=== PATIENT | female | born 1995 | race Caucasian/White ===

== ENCOUNTER 2017-04-03 23:51 | Emergency (ER) | payer MEDICAID ==
[~2017-04-03] VITALS: Ht 157.5 cm; Wt 73.8 kg
[~2017-04-03 23:51] MED LIST: DICL75TA5 PO; IBUP200C62 PO; NO ROUTINE MEDS; TRAM50TA4 PO
[2017-04-04 00:02] VITALS: Ht 157.5 cm; Wt 73.8 kg
[2017-04-04] MEDS: KETOROLAC 60mg/2ml INJECTION IM ONE (02:01)
--- NOTE | 2017-04-04 02:04 | NUR ---
XRAY PT TAKEN TO XRAY PER W/C
--- NOTE | 2017-04-04 02:16 | NUR ---
ROOM PT RETURNED TO ROOM 3 PER W/C FROM XRAY
--- NOTE | 2017-04-04 02:19 | NUR ---
PAIN PT REPORTS SHE IS NOT HURTING RIGHT NOW
[2017-04-04 02:26] VITALS: TEMP 97.8
--- NOTE | 2017-04-04 02:29 | ERPDOC ---
Departure Disposition Decision Date: April 04, 2017 Disposition Decision Time: : Disposition: 01 DISCHARGED HOME, SELF-CARE Impression Impression Impression: Primary Impression: Cervical strain Severity: Moderate Condition: Improved Seen By: Physician only Patient Instructions: Cervical Strain (ED) Problems/Meds/Labs Reviewed?: Yes Medications reviewed and manag: Yes Additional Instructions: Heat or cold to neck as tolerated. Robaxin 750 mg tablet 4 times daily for muscle spasm as needed. Your being sent with a QVPN ER pack. One tablet every 6 hours as needed for pain. Follow-up with your primary care provider. Follow up care ordered?: Yes Mental Status: Alert, Oriented Scripts Methocarbamol (Robaxin-750) 750 Mg Tablet 750 MG PO QID for PAIN, #30 TAB Take 1 tablet, by mouth, 4 times a day. Prov: KATY GATES MD 04/04/17 HPI - Headache General Chief Complaint: Headache Stated Complaint: HEAD PAIN Time Seen by Provider: 00:04 HPI - Headache Initial Comments 22-year-old female with neck ache and headache. She has been sleeping on a couch last couple nights, sharing it with her boyfriend. They're in the process of moving. She has had a kinked neck after sleeping on the couch. She then went out dancing with her 5-year-old daughter sanford and had increased neck pain after that. Pain is mid line neck up into the back of her head. No other pain or injuries no other complaints. No neuro symptoms Allergies: Coded Allergies: No Known Allergies (Unverified , 04/04/17) Past History Past Medical History Pt denies signifigant PMH Surgical History Denies Surgeries Vaccines Hx Influenza Vaccination: Yes (2012) Hx Pneumococcal Vaccination: No Social History Smoking Status: Current some day smoker # of Packs/Tins per Day: 0.5 Record Review Pertinent history updated: Yes Review of Systems Musculoskeletal General: see HPI Neurological General: see HPI All other Systems All Other Systems: Reviewed and Negative Physical Exam General General Nourishment: well nourished, well developed, appears stated age, no acute distress Vitals and Pain First Documented Vital Signs Date Time Temp Pulse Resp B/P Pulse Ox O2 Delivery O2 Flow Rate FiO2 04/04/17 00:02 97.8 97 20 123/67 99 Room Air Weight: Kilograms: 73.800 Height (feet): 5 Height (inches): 2.00 Triage Pain Scale: Normal Exams: Head: Normocephalic w/o trauma Chest/Resp: Clear all vicente, with good airflow, and symmetry bilaterally CV: Regular rate and rhythm, without murmur or gallop, Pulses 2+ all extremities, capillary refill, <2 seconds all ext., no pedal edema noted Neurologic: Patient is alert, and oriented, cranial nerves, motor/sensory/ cerebellar, exams w/o gross deficits, to observation Psychiatric: Patient exhibits, appropriate attention, emotion and affect Musculoskeletal (brief) Comments Tender mid C-spine to palpation. Paraspinal muscles also tender. Patient has pain with flexion of the neck. Rotation of neck is not painful. Neurologic (brief) Neurological Brief: FOUND: CN w/o gross def to obs, motor-no gross deficits, sensory-no gross deficits Differential Diagnoses Considering: Other (cervical fracture, cervical strain, migraine headache) Progress Results/Orders Orders Procedure Category Date Status Time Ketorolac (Toradol) PHA 04/04/17 Complete 02:00 Cervical Spine 3 RAD 04/04/17 Taken Views Or Less 01:54 Medications Current ED Medications Ketorolac Tromethamine (Toradol) 60 mg O ONCE IM Last administered on t 02:01; Start 04/04/17 at 02:00; Stop 04/04/17 at 02:01; Status DC Progress Progress X-rays cervical spine obtained and negative for any acute changes. It was sent for over read in a.m. Patient was given Toradol 60 mg IM which did help with pain. She'll be discharged with [facility] ER pack and prescription for Robaxin to be used when necessary for muscle spasm. If pain worsens she needs to call or return. KATY GATES MD April 04, 2017 02:29
[2017-04-04] MEDS ORDERED: METH-310 PO (02:32)
[2017-04-04 02:48] VITALS: BP 119/63; PULSE 89; RESP 16; O2SAT 99
--- NOTE | 2017-04-04 02:49 | NUR ---
INSTRUCTIONS DISMISSAL AND MEDICATION INSTRUCTIONS GIVEN TO PT RX GIVEN FOR ROBAXIN WITH INSTRUCTIONS DISP [facility] PREPACK WITH INSTRUCTIONS PT VERBALIZED UNDERSTANDING OF ALL
[2017-04-04] MEDS: HYDROCODONE/APAP 5/325 (PrePack) SENT HOME ONE (02:50)
--- NOTE | 2017-04-04 02:50 | NUR ---
DISMISS PT DISMISSED AMBULATORY WITH FAMILY
--- NOTE | 2017-04-04 07:47 | DI ---
Indication: ITS.REASON: neck pain PROCEDURE: CERVICAL SPINE 3 VIEWS OR LESS: Encounter: Initial Comparison: None Findings: Alignment of the cervical spine is straightened with loss of the normal lordosis. Cervicothoracic junction is intact. No acute fracture or subluxation. The vertebral body heights and disk spaces are normal. Impression: No acute fracture. Possible muscular strain or spasm. .
== END 2017-04-04 02:26 | disposition home or self-care (01) ==
LOC: ED 23:51
DX: S16.1XXA Strain of muscle, fascia and tendon at neck level, initial encounter (principal); X58.XXXA Exposure to other specified factors, initial encounter; Y93.84 Activity, sleeping; Y92.008 Other place in unspecified non-institutional (private) residence as the place of occurrence of the external cause; Y99.8 Other external cause status
CPT/HCPCS: 72040; 96372; 99283; J1885

== ENCOUNTER 2017-06-10 22:07 | Inpatient (IN) ==
[2017-06-10] MEDS ORDERED: NS 1,000 ML IV ONE ×2 (22:34→23:41)
[2017-06-10] MEDS ORDERED: ONDANSETRON 4 MG/2 ML INJECTION IVP ONE (22:41)
[2017-06-10] MEDS ORDERED: ACETAMINOPHEN IV 1,000 MG/100 ML VIAL IV ONE (22:42)
[2017-06-10] MEDS: SALINE FLUSH 10ml SYRINGE IVF PRN ×2 (22:46→23:59)
--- NOTE | 2017-06-10 23:16 | Emergency Department Report ---
General Adult HPI - General Chief complaint: Abdominal Pain Stated complaint: Lower abd pain,vomiting Time Seen by Provider: 06/10/17 22:14 Source: patient Mode of arrival: ambulatory Limitations: no limitations - History of Present Illness HPI narrative: 22-year-old female presents to the emergency department with a chief complaint of left lower abdominal pain. She noted onset of symptoms on Saturday of this past week. Symptoms have been persistent in nature since onset. Patient describes her pain as sharp. Pain is moderate. No radiation. She does not note anything that makes her pain any better or any worse. Patient also notes that she has been experiencing nausea and vomiting with her symptoms. She denies any blood in the emesis. She denies any trauma, travel, poorly prepared , or recent antibiotic use. No other complaints or associated symptoms. She was at home when her symptoms began. Symptoms have been persistent in nature since onset. - Related Data Home Medications Medication Instructions Recorded Confirmed NO ROUTINE MEDS #0 03/09/16 Previous Rx's Medication Instructions Recorded Methocarbamol [Robaxin-750] 750 mg PO QID #30 tab 04/04/17 Allergies Allergy/AdvReac Type Severity Reaction Status Date / Time No Known Allergies Allergy Unverified 04/04/17 00:10 Review of Systems Constitutional: Denies: fever, chills Eyes: Denies: eye pain, vision change ENT: Denies: ear pain, throat pain Cardiovascular: Denies: chest pain, palpitations Respiratory: Denies: cough, dyspnea Gastrointestinal: Reports: abdominal pain, nausea, vomiting. Denies: diarrhea, hematemesis Genitourinary: Reports: frequency. Denies: dysuria Integumentary: Denies: erythema, rash Neurological: Denies: headache, numbness Psychiatric: Denies: anxiety, depression Endocrine: Denies: fatigue, heat or cold intolerance Hematological/Lymphatic: Denies: easy bleeding, easy bruising Allergic/Immunologic: Denies: facial swelling, urticaria PFSH Patient Stated Medical History Ovarian Cysts Yes Now No Negative Surgical History: Eye surgery Family History: Reviewed and noncontributory. - Social History Smoking status: Never smoker Substance use type: does not use Alcohol intake frequency: does not drink Physical Exam - Limitations Limitations: no limitations - General General appearance: alert, in no apparent distress - Normal Exams: Head:: Normocephalic without trauma Eyes:: Pupils are PERRLA w/ EOMI, No scleral icterus, irritation, or foreign bodies noted ENMT:: No facial trauma, nasal exudates, pharyngeal erythema, or exudates are noted Dental: No fractured, loose, or missing teeth noted Neck:: Full range of motion, without adenopathy, JVD, bruits or thyromegaly Chest/Respirations:: Clear all vicente, with good airflow, and symmetry bilaterally Cardiovascular:: Regular rate and rhythm, without murmur or gallop, Pulses 2+ all extremities, capillary refill, <2 seconds all extremities Abdomen:: Bowel sounds positive, non-distended, no hepatosplenomegaly, masses or bruits noted (mild left lower/mid abdominal tenderness to palpation. No rebound or guarding. Soft. + L CVAT.) Lymphatic:: No lymphadenopathy, or lymphedema noted Musculoskeletal:: No tenderness, or deformity noted, good range of motion, all extremities Integumentary:: No rashes, hives, or bruising noted, hair and nails, without abnormality Neurological:: Patient is alert, and oriented, cranial nerves, motor/sensory/ cerebellar, exams w/o gross deficits, to observation Psychiatric:: Patient exhibits, appropriate attention, emotion and affect Course Vital Signs Temperature 103.2 F H 06/10/17 22:17 Pulse Rate 136 H 06/10/17 22:17 Respiratory Rate 20 06/10/17 22:17 Blood Pressure 120/69 06/10/17 22:17 Pulse Oximetry 97 06/10/17 22:17 Temperature 99.7 F 06/11/17 00:00 Pulse Rate 95 06/11/17 00:00 Respiratory Rate 20 06/10/17 22:35 Blood Pressure 103/58 06/11/17 00:00 Pulse Oximetry 97 06/11/17 00:00 Medical Decision Making - [facility] Narrative Medical decision making narrative: Labs / imaging were discussed in detail with the patient and family and questions are answered. Patient is given IV hydration. Patient is given Ofirmev 1 g intravenously in the emergency Department. Patient is started on Rocephin 1 g intravenously at 2326 after urinalysis was reviewed and source of sepsis was considered. Patient is given 2 L normal saline intravenously. She is given parental antiemetic medication with improvement of symptoms. Patient is markedly improved in the emergency Department. Patient is discussed with Dr. Dahl and admitted to the service of Dr. Hernandez in improved condition. Patient was admitted due to sepsis secondary to pyelonephritis. Patient is in agreement with the current plan of management. She is admitted to the hospital in improved condition. No further orders from accepting physician who is in agreement with the current plan of management. Patient did not qualify for 30 mL/kg normal saline hydration as she was never hypotensive and her lactic acid was less than 4 in the emergency department. Patient was given appropriate potassium supplementation in the emergency department. - Differential Diagnosis UTI, pyelonephritis, diverticulitis, metabolic disorder, viral syndrome - Lab Data Result diagrams: 06/10/17 22:47 06/10/17 22:47 Lab Results 06/10/17 06/10/17 06/10/17 Range/Units 22:34 22:34 22:47 WBC 15.4 H (4.5-11.0) T/MM3 RBC 4.30 (4.00-5.20) M/MM3 Hgb 13.6 (12-16) GM/DL Hct 39.3 (36-46) % MCV 91.4 (80-100) UM3 MCH 31.6 (26-34) UUG MCHC 34.6 (31-37) GM/DL RDW Std Deviation 41.0 (36.9-50.2) FL Plt Count 231 (130-400) T/MM3 MPV 9.1 L (9.4-12.4) UM3 Immature Gran % (Auto) Not performed Neut % (Auto) Not performed Lymph % (Auto) Not performed [place] % (Auto) Not performed Eos % (Auto) Not performed Baso % (Auto) Not performed Neut # Not performed Lymph # Not performed [place] # Not performed Eos # Not performed Baso # Not performed Abs Immat Gran (auto) Not performed Neutrophils % (Manual) 64.0 (33-66) % Band Neutrophils % 6.0 (0-6) % Lymphocytes % (Manual) 20.0 L (23-45) % Monocytes % (Manual) 10.0 H (0-9.0) % Neutrophils # (Manual) 9.9 H (1.8-7.7) T/MM3 Band Neutrophils # 0.9 T/MM3 Lymphocytes # (Manual) 3.1 (1-4.8) T/MM3 Monocytes # (Manual) 1.5 H (0-0.8) T/MM3 RBC Morph Comment Normal Turbidity (0-20) Sodium (134-144) MEQ/L Potassium (3.6-5) MEQ/L Chloride (98-107) MEQ/L Carbon Dioxide (22-30) MEQ/L Anion Gap (5-15) MEQ/L BUN (7-17) MG/DL Creatinine (0.7-1.2) MG/DL GFR Calculation BUN/Creatinine Ratio (6-26) RATIO Glucose (65-110) MG/DL Calculated Osmolality (261-280) MOSM/KG Calcium (8.4-10.2) MG/DL Total Bilirubin (0.20-1.30) MG/DL Icterus Index (0-7) AST (14-36) U/L ALT (9-52) U/L Alkaline Phosphatase (38-126) U/L Total Protein (6.3-8.2) G/DL Albumin (3.5-5.0) G/DL Globulin (2.4-3.6) G/DL Albumin/Globulin Ratio (1.1-2.2) RATIO Lipase (23-300) U/L Plasma Lactate (0.6-2.2) MMOL/L Procalcitonin NG/ML Specimen Hemolysis (0-25) Ur Collection Type Urine, clean catch Urine Color Yellow (YELLOW) Urine Clarity Sl cloudy Urine pH 6.0 (5.0-8.0) Ur Specific [place] 1.020 (1.015-1.025) Urine Protein 2+ A (NEGATIVE) Urine Glucose (UA) Negative (NEGATIVE) Urine Ketones 3+ A (NEGATIVE) Urine Occult Blood 1+ A (NEGATIVE) Urine Nitrate Positive A (NEGATIVE) Urine Bilirubin Negative (NEGATIVE) Urine Urobilinogen 1.0 (NORMAL) EU/DL Ur Leukocyte Esterase Negative (NEGATIVE) Urine RBC None seen (0-3) /HPF Urine WBC 5-10 H (0-5) /HPF Urine Bacteria 4+ H (NEGATIVE) Ur Culture Indicated? Cult reflexed &setup Urine Test Negative (Negative) 06/10/17 06/10/17 Range/Units 22:47 22:47 WBC (4.5-11.0) T/MM3 RBC (4.00-5.20) M/MM3 Hgb (12-16) GM/DL Hct (36-46) % MCV (80-100) UM3 MCH (26-34) UUG MCHC (31-37) GM/DL RDW Std Deviation (36.9-50.2) FL Plt Count (130-400) T/MM3 MPV (9.4-12.4) UM3 Immature Gran % (Auto) Neut % (Auto) Lymph % (Auto) [place] % (Auto) Eos % (Auto) Baso % (Auto) Neut # Lymph # [place] # Eos # Baso # Abs Immat Gran (auto) Neutrophils % (Manual) (33-66) % Band Neutrophils % (0-6) % Lymphocytes % (Manual) (23-45) % Monocytes % (Manual) (0-9.0) % Neutrophils # (Manual) (1.8-7.7) T/MM3 Band Neutrophils # T/MM3 Lymphocytes # (Manual) (1-4.8) T/MM3 Monocytes # (Manual) (0-0.8) T/MM3 RBC Morph Comment Turbidity < 20 (0-20) Sodium 134 (134-144) MEQ/L Potassium 2.9 L* (3.6-5) MEQ/L Chloride 96 L (98-107) MEQ/L Carbon Dioxide 23 (22-30) MEQ/L Anion Gap 15 (5-15) MEQ/L BUN 8.0 (7-17) MG/DL Creatinine 0.8 (0.7-1.2) MG/DL GFR Calculation 89 BUN/Creatinine Ratio 10 (6-26) RATIO Glucose 96 (65-110) MG/DL Calculated Osmolality 256 L (261-280) MOSM/KG Calcium 9.3 (8.4-10.2) MG/DL Total Bilirubin 1.00 (0.20-1.30) MG/DL Icterus Index < 2 (0-7) AST 20 (14-36) U/L ALT 44 (9-52) U/L Alkaline Phosphatase 75 (38-126) U/L Total Protein 8.2 (6.3-8.2) G/DL Albumin 4.5 (3.5-5.0) G/DL Globulin 3.7 H (2.4-3.6) G/DL Albumin/Globulin Ratio 1.2 (1.1-2.2) RATIO Lipase 28 (23-300) U/L Plasma Lactate 0.9 (0.6-2.2) MMOL/L Procalcitonin 0.20 NG/ML Specimen Hemolysis < 15 (0-25) Ur Collection Type Urine Color (YELLOW) Urine Clarity Urine pH (5.0-8.0) Ur Specific [place] (1.015-1.025) Urine Protein (NEGATIVE) Urine Glucose (UA) (NEGATIVE) Urine Ketones (NEGATIVE) Urine Occult Blood (NEGATIVE) Urine Nitrate (NEGATIVE) Urine Bilirubin (NEGATIVE) Urine Urobilinogen (NORMAL) EU/DL Ur Leukocyte Esterase (NEGATIVE) Urine RBC (0-3) /HPF Urine WBC (0-5) /HPF Urine Bacteria (NEGATIVE) Ur Culture Indicated? Urine Test (Negative) - Radiology Data CT ABD/PELVIS: Perinephric fat stranding surrounding the left kidney consistent with pyelonephritis. No ureteral stone. No other acute process. Disposition Clinical Impression: Pyelonephritis, Hypokalemia Sepsis Qualifiers: Sepsis type: sepsis due to unspecified organism Qualified Code(s): A41.9 - Sepsis, unspecified organism Disposition: 02 To [facility] Acute Care Condition: Improved Prescriptions: No Action NO ROUTINE MEDS #0 Methocarbamol [Robaxin-750] 750 mg PO QID #30 tab Time of Disposition: 00:05 - Seen By: physician
[2017-06-10] MEDS ORDERED: CEFTRIAXONE (ER USE ONLY) 1 GM in NS 100 ML IV ONE (23:26)
[2017-06-11] MEDS: POTASSIUM CHLORIDE PREMIX 10 MEQ/100 ML BAG IV SCH ×3 (00:09→02:06)
--- NOTE | 2017-06-11 00:41 | History & Physical Report ---
<Boni Gabriel - Last Filed: 06/11/17 02:00> History of Present Illness Date: 06/11/17 Chief complaint: fever dysuria HPI: very pleasant 22-year-old white female presents to the emergency room with flank pain nausea vomiting fevers. the left back area has been moderate to severely painful. she vomited approximately 10 times today, has been unable to eat anything down this evening. she's vomited over the past 3-4 days. she has a slight headache, but she thinks that from vomiting. she denies any cough she denies any chest pain in the emergency room she was noted to have a fever of 103. she is quite tachycardic, she received iv fluid bolus and some potassium replacement. she is feeling much better with a fever that is down in the 99 range and much improved pulse. 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) Medications Home Medications Medication Instructions Recorded Confirmed Type NO ROUTINE MEDS #0 03/09/16 History Allergies Allergy/AdvReac Type Severity Reaction Status Date / Time No Known Allergies Allergy Unverified 04/04/17 00:10 Exam Vital Signs: Temperature 99.7 F 06/11/17 00:00 Pulse Rate 95 06/11/17 00:00 Respiratory Rate 20 06/10/17 22:35 Blood Pressure 103/58 06/11/17 00:00 Pulse Oximetry 97 06/11/17 00:00 Oxygen Delivery Method Room Air Height: 1.57 m Weight: 75.1 kg - Constitutional Present: mild distress - Routine HEENT Exam Head: Present: normocephalic Eye: Present: EOMI ENT: Present: mucous membranes dry - Routine Neck Exam Present: supple - Routine Respiratory Exam Present: CTA bilaterally. Absent: accessory muscle use - Routine Cardiovascular Exam Present: RRR, S1, S2 - Routine Abdominal Exam Present: soft, tenderness (L flank) - Routine Extremities Exam Absent: cyanosis, clubbing, edema - Routine Skin Exam Present: intact Results - Labs CBC & Chem 7: 06/10/17 22:47 06/10/17 22:47 Microbiology Results: Microbiology 06/10/17 22:34 Urine, Voided (Cc/notcc) Urine Culture - Preliminary Culture Initiated - Results Pending 06/10/17 22:47 Peripheral/Iv Start Blood Culture - Preliminary Culture Initiated - Results Pending 06/10/17 22:50 Peripheral/Iv Start Blood Culture - Preliminary Culture Initiated - Results Pending Assessment and Plan (1) Pyelonephritis Current visit: Yes Status: Acute 06/11/17 02:15 IV rocephin, IV fluid at 150 ml/h (2) Sepsis Current visit: Yes Status: Acute 06/11/17 02:15 POA, improved with IV fluids and tylenol (3) Hypokalemia Current visit: Yes Status: Acute 06/11/17 02:16 from n/v, replace IV tonight and PO when taking PO ok Sepsis Assessment - Evaluation Possible source: genitourinary SIRS Criteria: temperature > or equal to 100.4, pulse > or equal to 90 beats/ minute, WBC > or equal to 12,000 Severe Sepsis: none seen Hospital Course Summary Disclaimer: The visit summary below is not to be considered part of the above Progress Note. <Elda Hernandez - Last Filed: 06/11/17 11:40> History of Present Illness Date: 06/11/17 [facility] Patient Stated Medical History Ovarian Cysts Yes Now No Exam Vital Signs: Temperature 100.8 F H 06/11/17 07:14 Pulse Rate 90 06/11/17 08:19 Respiratory Rate 16 06/11/17 08:19 Blood Pressure 112/71 06/11/17 07:14 Pulse Oximetry 97 06/11/17 08:19 Oxygen Delivery Method Room Air Height: 1.57 m Weight: 75.2 kg Results - Labs CBC & Chem 7: 06/11/17 06:50 06/11/17 06:50 Microbiology Results: Microbiology 06/11/17 06:50 Cath/Port/Line/Picc Blood Culture - Preliminary Culture Initiated - Results Pending Assessment and Plan (1) Pyelonephritis Current visit: Yes Status: Acute (2) Sepsis Current visit: Yes Status: Acute (3) Hypokalemia Current visit: Yes Status: Acute DVT Prophylaxis: SQ Heparin Resuscitation Status: Full Code Assessment and Plan: Dr. Dahl's note reviewed. Zaida interviewed and examined. CC: Nausea/vomiting HPI: Zaida is a 22-year-old female who presented to the emergency room after 5 days of left lower quadrant/flank pain followed by onset of nausea and vomiting 3 days prior to admission and fevers for 2 days. Frequency of emesis had escalated to approximately 10 events yesterday before she presented to the emergency room with bilious emesis but no hematemesis. She was dizzy but had no syncopal events. She denied generalized myalgias or headaches and reports she been unable to maintain any oral intake due to repetitive vomiting for the prior 2 days. Temperature on arrival in the emergency room was 103 with tachycardia present. White count was elevated and urine suggestive of infection. CT of the abdomen consistent with left-sided pyelonephritis and patient was admitted for IV antibiotic therapy. PH/SH/FH: agree with that recorded above by Dr. Dahl. Patient believes her brother may have asthma but has little knowledge of family history. [facility] but does not see a consistent provider there. She would like her boyfriend Lito to be her alternate decision maker and is a full code. ROS: 10 point review as recorded by Dr. Dahl EXAM: General-NAD, alert, MAXIMUM TEMPERATURE 103.2, temperature this morning 100.8, current blood pressure 112/71 and heart rate 90. HEENT-left pupil 6 mm, right 5 mm-both react briskly to light, EOMI without nystagmus, conjunctiva clear, sclera anicteric, conjugate gaze, facial structures symmetric, oropharynx clear, neck supple and without adenopathy Lungs-respirations nonlabored, good airflow, breath sounds clear Cardiac-regular rhythm, S1-S2 Abd-slightly obese, soft, nontender, bowel sounds present, no tenderness on palpation the left lower quadrant this morning. No flank tenderness right or left. Ext-without edema Skin-without generalized rash or wounds, tender to right lower extremity Neuro-cranial nerves 3-12 intact, motor tone/power within normal limits, no tremor Psych-calm, cooperative DATA: Admission white count 15.4 improving slightly to 13.3 this morning, 11% bands/65% neutrophils this morning. Potassium 2.6 on presentation, 3.9 this morning. Creatinine 0.8, liver enzymes unremarkable, lactic acid 0.9, procalcitonin 0.2 UA positive for +3 ketones, +1 occult blood, nitrites, 3-5 WBCs, 4+ bacteria, 2 + protein. CT abdomen/pelvis reviewed by myself demonstrating left perinephric stranding but no nephrolithiasis or other acute pathology. A/P: Pyelonephritis with sepsis Hypokalemia, improved Nausea/vomiting, improving Dehydration Anemia, normocytic Patient was admitted overnight with clear pyelonephritis complicated by hemodynamic instability (as evidenced by tachycardia), hypokalemia, and dehydration. Initial dose of ceftriaxone given just after midnight and potassium has been replaced overnight in conjunction with IV fluids. Patient is tolerating liquids this morning. Continues to have low-grade fevers. Cultures pending. Continue Rocephin and IV fluids. With hydration mild anemia now evident -defer for outpatient evaluation. Advance diet as tolerates. Patient reports feeling significantly improved following hydration; reevaluate later today to determine if stable for discharge as patient reports child care sitter needs in the home. Sepsis Assessment - Evaluation SIRS Criteria: temperature > or equal to 100.4, pulse > or equal to 90 beats/ minute, WBC > or equal to 12,000, Bands > or equal to 10% Hospital Course Summary Disclaimer: The visit summary below is not to be considered part of the above Progress Note.
[2017-06-11] MEDS ORDERED: METOCLOPRAMIDE 10mg/2ml INJECTION IVP PRN (01:12)
[2017-06-11] MEDS ORDERED: ONDANSETRON 4 MG/2 ML INJECTION IVP PRN ×2 (01:12)
[2017-06-11] MEDS ORDERED: CEFTRIAXONE 1 G in NS 100 ML IV SCH ×2 (01:12→18:00)
[2017-06-11] MEDS ORDERED: SALINE FLUSH 10ml SYRINGE IVF PRN (01:12)
[2017-06-11] MEDS ORDERED: MORPHINE SULFATE 4 MG SYRINGE IVP PRN (01:12)
[2017-06-11] MEDS ORDERED: IBUPROFEN 800 MG TABLET PO PRN (01:12)
[2017-06-11] MEDS ORDERED: NS with KCL 20 mEq 1,000 ML IV SCH (01:12)
[2017-06-11 01:32] VITALS: BMI 30.2
[2017-06-11] MEDS: POTASSIUM CHLORIDE INJ 40 MEQ in NS 1,000 ML IV SCH ×2 (02:36→10:22)
[2017-06-11] MEDS: HEPARIN SUB-Q 5,000 UNITS/0.5 ML INJECTION SQ SCH ×3 (02:36→17:06)
[2017-06-11] MEDS: ACETAMINOPHEN 325 MG TABLET PO PRN ×2 (06:03→13:13)
--- NOTE | 2017-06-11 08:01 | CT Scan Report ---
Indication: L abd pain PROCEDURE: CT abdomen pelvis wo con: Encounter: Initial Comparison: Acute abdomen series dated June 20, 2014 Technique: Axial CT images were performed through the abdomen and pelvis without intravenous contrast. Coronal and sagittal two-dimensional reformats. Automated Exposure Control and Iterative Reconstruction dose reducing techniques were utilized. Findings: The lung bases are clear. The unenhanced contours of the liver are unremarkable. Gallbladder, spleen, pancreas and adrenal glands are within normal limits. Mild left perinephric stranding. No left renal or ureteral stone however. Right kidney is unremarkable. The appendix is normal. Small and large bowel show no acute abnormality. Uterus is grossly normal. Bone windows are normal. Impression: Mild perinephric stranding on the left could represent pyelonephritis or recently passed stone. There is a preliminary report by [facility]. .
[2017-06-11 15:40] VITALS: BP 123/66; PULSE 102; RESP 18; TEMP 98.7; O2SAT 100
--- NOTE | 2017-06-11 18:01 | Discharge Instructions ---
Discharge Plan - Med Rec/Dispo [place] Instructions: Urinary Tract Infection in Women (GEN) Prescriptions: New Acetaminophen [Tylenol] 325 - 650 mg PO Q5HR PRN tablet PRN Reason: Discomfort cephALEXin [Cephalexin] 1 cap PO QID #32 cap Continue Methocarbamol [Robaxin-750] 750 mg PO QID #30 tab Discontinued NO ROUTINE MEDS #0 Discharge Instructions/Outpatient Orders: Final Provider Discharge Instructions Location: Determined By Patient - Disposition 01 Discharged Home, Self-Care
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
[2017-06-12] MEDS ORDERED: CEFTRIAXONE 1 G in NS 100 ML IV SCH ×2 (18:00)
== END 2017-06-11 18:45 | disposition home or self-care (01) | DRG 872 ==
LOC: ED 22:07 → MED 06-11 00:38
PROVIDERS: ADMIT Pediatrics; ATTEND Internal Medicine